=== PATIENT | female | born 1930 | race Caucasian/White ===

== ENCOUNTER 2016-09-07 09:55 | Outpatient (CLI) ==
--- NOTE | 2016-09-07 11:03 | US ---
EXAM: Renal ultrasound HISTORY: Chronic renal disease COMPARISON: None TECHNIQUE: Sonographic evaluation of the kidneys was performed with limited Doppler evaluation. FINDINGS: The right kidney measures 9.4 x 4.8 x 3.8 cm with renal cortical thickness of 1.0 cm. Th ere is normal echogenicity and color Doppler flow. No stone or hydronephrosis is identified. Anech oic cyst in the pelvis measures 3.0 x 4.0 x 3.5 centimeters. The left kidney measures 9.0 x 4.1 x 4.1 cm with renal cortical thickness of 1.0 cm. There is kenan l echogenicity and color Doppler flow. No stone or hydronephrosis is identified. Limited evaluation of the urinary bladder is unremarkable. Ureteral jets are not identified. IMPRESSION: Large right parapelvic cyst.
== END 2016-09-07 09:56 | disposition home or self-care (01) ==
LOC: RAD 09:55
PROVIDERS: ATTEND Specialist
DX: N18.3 Chronic kidney disease, stage 3 (moderate) (principal)
CPT/HCPCS: 76770

== ENCOUNTER 2016-09-23 09:30 | Outpatient (CLI) ==
[2016-09-23 09:59] LABS: HEMATOCRIT 41.5 % (37.0-47.0); HEMOGLOBIN 13.6 g/dl (12.0-16.0); MEAN CORPUSCULAR HEMOGLOBIN 29.2 pg (27.0-31.0); MEAN CORPUSCULAR HGB CONC 32.8 (31.8-35.4); MEAN CORPUSCULAR VOLUME 89.1 fl (81.0-99.0); RED BLOOD COUNT 4.66 10^6/ul (4.20-5.40); WHITE BLOOD COUNT 6.88 K/ul (4.6-10.2)
[2016-09-23 10:01] LABS: BILIRUBIN,URINE Negative (NEGATIVE); KETONES,URINE Negative (NEGATIVE); LEUKOCYTE ESTERASE ,URINE 2+ (NEGATIVE); NITRITE,URINE Negative (NEGATIVE); PROTEIN,URINE Negative (NEGATIVE); URINE, BLOOD Trace-intact (NEGATIVE)
[2016-09-23 10:03] LABS: ADD URINE MICROSCOPIC YES
[2016-09-23 10:16] LABS: ALBUMIN 3.5 g/dL (3.4-5.0); ANION GAP 11.4; BUN/CREATININE RATIO 10.52; CALCIUM 9.2 mg/dL (8.2-10.2); CREATININE 1.14 mg/dL (0.60-1.30); PHOSPHORUS 3.9 mg/dL (2.8-4.1); POTASSIUM 4.4 mmol/L (3.5-5.10); URIC ACID 4.8 mg/dL (2.4-6.0)
[2016-09-26 15:15] LABS: A/G RATIO 1.1 (0.7-1.7); ALPHA-1 GLOBULIN 0.2 g/dL (0.0-0.4); ALPHA-2 GLOBULIN 0.9 g/dL (0.4-1.0); BETA GLOBULIN 1.3 g/dL (0.7-1.3); GAMMA GLOBULIN 0.8 g/dL (0.4-1.8); TOTAL GLOBULINS 3.2 g/dL (2.2-3.9)
== END 2016-09-23 09:31 | disposition home or self-care (01) ==
LOC: LAB 09:30
PROVIDERS: ATTEND Specialist
DX: N18.3 Chronic kidney disease, stage 3 (moderate) (principal)
CPT/HCPCS: 36415; 80069; 81001; 82570; 83970; 84156; 84165; 84550; 85027

== ENCOUNTER 2017-06-15 13:37 | Outpatient (CLI) | END 2017-06-15 13:38 | disposition home or self-care (01) | LOC: LAB 13:37 | PROVIDERS: ATTEND Specialist | DX: N18.3 Chronic kidney disease, stage 3 (moderate) (principal) | CPT/HCPCS: 36415; 80069; 82570; 83970; 84156; 84550; 85027 ==

== ENCOUNTER 2017-12-14 13:39 | Outpatient (CLI) | END 2017-12-14 13:40 | disposition home or self-care (01) | LOC: LAB 13:39 | PROVIDERS: ATTEND Specialist | DX: N18.3 Chronic kidney disease, stage 3 (moderate) (principal) | CPT/HCPCS: 36415; 80069; 82570; 84156; 84550 ==

== ENCOUNTER 2018-08-02 15:19 | Outpatient (CLI) | END 2018-08-02 15:20 | disposition home or self-care (01) | LOC: LAB 15:19 | PROVIDERS: ATTEND Specialist | DX: N18.3 Chronic kidney disease, stage 3 (moderate) (principal) | CPT/HCPCS: 36415; 80069; 81001; 83970; 84550; 85025; 85027 ==